=== PATIENT | female | born 1990 | race Caucasian/White ===

== ENCOUNTER 2020-11-03 14:46 | Outpatient (CLI) | payer SELFPAY ==
[~2020-11-03] VITALS: Ht 172.7 cm; Wt 104.5 kg
[2020-11-03 15:53] LABS: MICROSCOPIC NOT IND
[2020-11-08] MEDS ORDERED: OXYC1TAB14 PO (11:09)
== END 2020-11-03 16:37 | disposition home or self-care (01) ==
LOC: LDOP 14:46 → MERGE 14:46 → LDOP 16:37 → EDSTATUS 11-06 14:45
PROVIDERS: ATTEND Obstetrics & Gynecology
DX: O98.513 Other viral diseases complicating pregnancy, third trimester (principal); O26.893 Other specified pregnancy related conditions, third trimester; R10.9 Unspecified abdominal pain; Z3A.38 38 weeks gestation of pregnancy
CPT/HCPCS: 59025; 81003; U0003; U0005

== ENCOUNTER 2020-11-06 08:40 | Inpatient (IN) | payer OTHER ==
[~2020-11-06] VITALS: Ht 172.7 cm; Wt 108.1 kg
[2020-11-06] MEDS ORDERED: NEWBORN KIT ONE (10:27)
[2020-11-06] MEDS ORDERED: METOCLOPRAMIDE 5 MG/ML, 2ML ONE (10:27)
[2020-11-06] MEDS ORDERED: OXYTOCIN 30U/ 0.9% NaCL 500ML 500 ML ONE (10:27)
[2020-11-06] MEDS ORDERED: SODIUM CITRATE/CITRIC ACID 15 ML UDC ONE (10:27)
[2020-11-06] MEDS ORDERED: LACTATED RINGERS 1,000 ML IV SCH ×2 (10:30→14:00)
[2020-11-06] MEDS ORDERED: METOCLOPRAMIDE 5 MG/ML, 2ML IV ONE (10:30)
[2020-11-06] MEDS ORDERED: SODIUM CITRATE/CITRIC ACID 30 ML UDC PO ONE (10:30)
[2020-11-06] MEDS ORDERED: LACTATED RINGERS 1,000 ML IVBOLUS ONE (10:30)
[2020-11-06 10:55] LABS: BASOPHILS % (AUTO) 0 % (0-1); EOSINOPHILS % (AUTO) 2 % (1-7); LYMPHOCYTES % (AUTO) 16 % (22-44); MEAN CORPUSCULAR HEMOGLOBIN 30.6 pg (27.0-34.8); MEAN CORPUSCULAR HGB CONC 34.2 g/dL (32.4-35.8); MEAN PLATELET VOLUME 9.1 fL (7.4-10.4); MONOCYTES % (AUTO) 6 % (2-9); NEUTROPHILS % (AUTO) 76 % (42-75); PLATELET COUNT 186 x10^3/uL (130-400); RED BLOOD COUNT 4.51 x10^6/uL (3.82-5.3); RED CELL DISTRIBUTION WIDTH 13.9 % (9.6-15.2)
[2020-11-06] MEDS ORDERED: LEVO150C4 PO (11:29)
[2020-11-06] MEDS ORDERED: ONDANSETRON 2MG/ML, 2ML IVPush PRN (11:30)
[2020-11-06] MEDS ORDERED: OXYcodone 5 MG/5 ML ORAL.SOL UDC PO PRN (11:30)
[2020-11-06] MEDS ORDERED: hydrALAzine 20 MG/ML, 1ML IV PRN (11:30)
[2020-11-06] MEDS ORDERED: ALBUTEROL SULFATE 2.5 MG/3 ML NPPB PRN (11:30)
[2020-11-06] MEDS ORDERED: LABETALOL 5MG/ML, 20ML IV PRN (11:30)
[2020-11-06] MEDS ORDERED: PROMETHAZINE 25 MG/ML, 1ML IV PRN (11:30)
[2020-11-06] MEDS ORDERED: METOPROLOL 1 MG/ML, 5ML IV PRN (11:30)
[2020-11-06] MEDS ORDERED: EPHEDRINE 50 MG/ML, 1ML IVPush PRN (11:30)
[2020-11-06] MEDS ORDERED: HYDROmorphone 2 MG/ML, 1ML IVPush PRN (11:30)
[2020-11-06] MEDS ORDERED: MIDAZOLAM 1 MG/ML, 2ML IV PRN (11:30)
[2020-11-06] MEDS ORDERED: HYDROcodone/APAP 7.5-325MG/15ML UDC PO PRN (11:30)
[2020-11-06] MEDS ORDERED: FENTANYL PF 100 MCG/2ML IV PRN (11:30)
[2020-11-06] MEDS ORDERED: MEPERIDINE/PF 25MG/0.5ML IVPush PRN (11:30)
[2020-11-06] MEDS ORDERED: MEPERIDINE/PF 50 MG/ML ONE (13:22)
[2020-11-06] MEDS: ACETAMINOPHEN 500 MG TABLET PO SCH ×2 (14:00→19:34)
[2020-11-06] MEDS ORDERED: ONDANSETRON 2MG/ML, 2ML IV PRN (14:00)
[2020-11-06] MEDS ORDERED: MISOPROSTOL 200 MCG TABLET PR PRN (14:00)
[2020-11-06] MEDS ORDERED: MORPHINE SULFATE 4 MG/ML, 1ML IVPush PRN (14:00)
[2020-11-06] MEDS ORDERED: OXYcodone IR 5MG TABLET PO PRN (14:00)
[2020-11-06] MEDS: KETOROLAC 30 MG/1 ML IV SCH ×2 (14:00→19:33)
[2020-11-06] MEDS: OXYTOCIN 30U/ 0.9% NaCL 500ML 500 ML IV SCH (14:00)
[2020-11-06] MEDS ORDERED: morphine SULFATE 10 MG/ML, 1ML IM PRN (14:00)
[2020-11-06] MEDS ORDERED: CALCIUM CARBONATE 500 MG TAB.CHEW PO PRN (14:00)
[2020-11-06] MEDS: LACTATED RINGERS 1,000 ML IV SCH ×2 (14:00→17:15)
[2020-11-06 15:45] VITALS: BP 132/77
[2020-11-06 19:22] VITALS: BP 119/69
[2020-11-06] MEDS: DOCUSATE 100 MG CAPSULE PO PRN (19:34)
[2020-11-06] MEDS: OXYcodone IR 5MG TABLET PO PRN (19:34)
[2020-11-06 20:48] LABS: BASOPHILS % (AUTO) 0 % (0-1); EOSINOPHILS % (AUTO) 0 % (1-7); LYMPHOCYTES % (AUTO) 8 % (22-44); MEAN CORPUSCULAR HEMOGLOBIN 30.2 pg (27.0-34.8); MEAN CORPUSCULAR HGB CONC 33.3 g/dL (32.4-35.8); MEAN PLATELET VOLUME 9.2 fL (7.4-10.4); MONOCYTES % (AUTO) 5 % (2-9); NEUTROPHILS % (AUTO) 87 % (42-75); PLATELET COUNT 178 x10^3/uL (130-400); RED BLOOD COUNT 3.98 x10^6/uL (3.82-5.3); RED CELL DISTRIBUTION WIDTH 13.6 % (9.6-15.2)
[2020-11-07 00:15] VITALS: BP 111/70
[2020-11-07] MEDS: OXYcodone IR 5MG TABLET PO PRN ×6 (00:15→22:23)
[2020-11-07] MEDS: KETOROLAC 30 MG/1 ML IV SCH ×2 (01:41→07:42)
[2020-11-07] MEDS: ACETAMINOPHEN 500 MG TABLET PO SCH ×4 (01:41→20:20)
[2020-11-07 03:51] VITALS: BP 125/79
[2020-11-07] MEDS: SIMETHICONE 80 MG CHEW TAB PO PRN (04:16)
[2020-11-07] MEDS ORDERED: LIOTHYRONINE 25 MCG TABLET PO SCH ×2 (06:00)
[2020-11-07] MEDS: LEVOTHYROXINE 150 MCG TABLET PO SCH (06:00)
[2020-11-07 07:17] VITALS: BP 122/65
[2020-11-07] MEDS: DOCUSATE 100 MG CAPSULE PO PRN ×2 (07:41→20:20)
[2020-11-07] MEDS: PRENATAL VIT/IRON/FA 1 EACH TABLET PO SCH (07:42)
[2020-11-07] MEDS: OXYTOCIN 30U/ 0.9% NaCL 500ML 500 ML IV SCH ×3 (10:00→20:00)
[2020-11-07] MEDS: LACTATED RINGERS 1,000 ML IV SCH ×2 (10:00→20:00)
[2020-11-07 11:33] VITALS: BP 117/70
[2020-11-07] MEDS: IBUPROFEN 600 MG TABLET PO SCH ×2 (14:37→20:20)
[2020-11-07 19:10] VITALS: BP 132/79
[2020-11-08] MEDS: OXYcodone IR 5MG TABLET PO PRN ×3 (02:13→11:57)
[2020-11-08] MEDS: ACETAMINOPHEN 500 MG TABLET PO SCH ×2 (02:13→08:03)
[2020-11-08] MEDS: IBUPROFEN 600 MG TABLET PO SCH ×2 (02:13→08:03)
[2020-11-08] MEDS: SIMETHICONE 80 MG CHEW TAB PO PRN (02:17)
[2020-11-08] MEDS: LACTATED RINGERS 1,000 ML IV SCH (04:24)
[2020-11-08] MEDS: OXYTOCIN 30U/ 0.9% NaCL 500ML 500 ML IV SCH (04:24)
[2020-11-08] MEDS: LEVOTHYROXINE 150 MCG TABLET PO SCH (05:39)
[2020-11-08 07:30] VITALS: BP 131/70
[2020-11-08] MEDS: PRENATAL VIT/IRON/FA 1 EACH TABLET PO SCH (09:00)
[2020-11-08] MEDS ORDERED: IBUP-1222 PO (11:09)
[2020-11-08] MEDS ORDERED: OXYC1TAB12 PO (11:09)
[2020-11-08] MEDS ORDERED: DOCU-131 PO (11:10)
== END 2020-11-08 12:50 | disposition home or self-care (01) | DRG 788 ==
LOC: LDIP 10:09 → MERGE 10:09 → LDIP 10:32 → 2NW 15:34
PROVIDERS: ADMIT Obstetrics & Gynecology; ATTEND Obstetrics & Gynecology
PROC: 10D00Z1 Extraction of Products of Conception, Low, Open Approach (ICD-10-PCS; principal; 2020-11-06)
PROC: 3E0234Z Introduction of Serum, Toxoid and Vaccine into Muscle, Percutaneous Approach (ICD-10-PCS; 2020-11-06)
DX: O32.1XX0 Maternal care for breech presentation, not applicable or unspecified (principal); E03.9 Hypothyroidism, unspecified; O69.81X0 Labor and delivery complicated by cord around neck, without compression, not applicable or unspecified; O99.284 Endocrine, nutritional and metabolic diseases complicating childbirth; Z37.0 Single live birth; Z3A.39 39 weeks gestation of pregnancy; Z82.49 Family history of ischemic heart disease and other diseases of the circulatory system
CPT/HCPCS: 36415; 85025; 85461; 86592; 86850; 86900; G0378; J1885; J2175; J2790; J2765; J7120